=== PATIENT | male | born 1965 | race Caucasian/White ===

== ENCOUNTER → 2024-08-10 09:33 | Emergency (ER) | payer BC, SELFPAY ==
[2024-08-10] VITALS (7 sets, daily range): BP systolic 115–127; BP diastolic 72–92
--- NOTE | 2024-08-10 09:50 | ED.GENMED ---
History of Present Illness
General
Chief Complaint: Fainting/Passed Out
Time Seen by Provider: 08/10/24 09:50
History of Present Illness
History of Present Illness:
TIME OF INITIAL ENCOUNTER: 9:55 AM
HPI:
The patient is a 59-year-old male with a history of a cold lasting approximately one week, presenting with symptoms of cough, indigestion, and dizziness. The patient reports feeling nauseous in the shower today, leading to two episodes of syncope
where he fell to the floor. He mentioned not sleeping well last night and urinating frequently. Upon review of the youth nutritional monitor, the patient demonstrated frequent ventricular beats, but not ventricular tachycardia. The patient has noted muscle
soreness in the back and neck resulting from the falls but denies significant pain or tenderness upon palpation of these areas. Vital signs indicated a slightly elevated temperature of 100.8 �F. The patient has not taken any medication like Tylenol
or Motrin for the fever. He denies current feelings of passing out and significant head or neck pain but reports some soreness. The patient also confirmed negative results for flu and COVID-19 testing conducted at urgent care.
EXAM:
GENERAL: Well appearing in no distress
HEENT: Moist oral mucosa
HEAD: No evidence of craniofacial trauma
C-SPINE: No midline C-spine tenderness
BACK: No midline L-spine tenderness
CARDIOVASCULAR: No murmurs, borderline tachycardic heart rate, regular rhythm, frequent ectopy noted no chest wall tenderness
PULMONARY: No respiratory distress, breath sounds are clear and equal
ABDOMEN: Soft with no peritoneal signs, no tenderness
NEUROLOGIC: Excellent strength all extremities, no coordination deficits
PSYCHIATRIC: Appropriate mental status, normal insight and judgement
EXTREMITIES: Nontender, no edema, moves all extremities equally
SKIN: No rash, no lesions
NUMBER AND COMPLEXITY OF PROBLEMS ADDRESSED AT THE ENCOUNTER
� Chronic conditions affecting care: CKD, high blood pressure, GERD
� Acute Exacerbation and/or Progression of Chronic Illness: This is an acute problem
� Differential Diagnosis includes:
- Dehydration
- Vasovagal syncope
- Vertigo
- Hypoglycemia
- Urinary tract infection
- Gastroenteritis
- Electrolyte imbalance
- Influenza
- COVID-19
- Sepsis
AMOUNT AND/OR COMPLEXITY OF DATA TO BE REVIEWED AND ANALYZED
� I performed an independent evaluation of and my interpretation is:
EKG: Sinus 108, frequent monomorphic PVCs, PAC
CT:
X-rays: Chest x-ray suggest the possibility of right lower lobe pneumonia versus atelectasis
Laboratory Studies: Chemistries including magnesium normal
Other:
� Review of other/old records: I reviewed [facility] from [facility] [place]: Urinalysis shows moderate blood, negative ketones, protein greater than 300, nitrite leukocyte esterase negative, flu COVID-negative. White
count 9.8, hemoglobin 14.8, sodium 138, potassium 4.6, chloride 101, ionized calcium 1.16 (normal), bicarb 24, glucose 107, BUN 22, creatinine 1.6
� Clinical information was obtained by an independent historian: I spoke to mother at bedside
� Prescriptions/Medications Considered but not given:
� Further testing considered but not performed:
RISK OF COMPLICATIONS AND/OR MORBIDITY OR MORTALITY OF PATIENT MANAGEMENT
� Social determinants of health affecting care: Lives at home
� Discussion with other providers:
� Escalation of care including admission/observation vs risk of discharge considered: The patient is given IV fluids. He has frequent ventricular ectopy on the monitor and at times and ventricular bigeminy.
ANY OTHER UPDATES:
1 PM: I reassessed patient. Ventricular bigeminy and all ventricular ectopy has resolved. He was given fluids and Tylenol for the fever. Chest x-ray suggest pneumonia. Will start antibiotics. Regarding his nonspecific back pain, he wants to try
'a muscle relaxer'. Overall is very well-appearing at time of discharge
Phy Exam
Physical Exam
Physical Exam:
See HPI
Sepsis
Sepsis Screening
Sepsis Assessment: Sepsis Ruled Out
Sepsis Screen
Sepsis Screen: Sepsis Ruled Out
Date: 08/10/24
Time: 13:01
Course
Orders/Labs/Results
Orders:
Orders
08/10/24 09:37
EKG [Electrocardiogram (*1)] Urgent
Reason for Study: Chest Pain
EKG- Treatment ONCE
08/10/24 09:53
0.9% Sodium Chloride 1000 ml [Nss] 1,000 ml IV BOLUS
08/10/24 10:01
Acetaminophen [Tylenol] 1,000 mg PO NOW STA
08/10/24 10:02
CR Chest - 2 Views Urgent
Comment:
Reason For Exam: fever
08/10/24 11:39
Complete Blood Count/With Diff Urgent
Comprehensive Metabolic Panel Urgent
Lactic Acid Q4H
Comment: CANCEL 2nd LACTIC ACID IF 1st LACTIC ACID IS LESS THAN 2
Magnesium Urgent
Blood Culture Q30M
KYLIE Source: Blood/Venous
Specimen Description:
Blood Culture Q30M
KYLIE Source: Blood/Venous
Specimen Description:
Abnormal Lab Results
08/10/24
11:39
RBC 4.37 L 10^6/uL
(4.70-6.10)
MCH 32.5 H pg
(27.0-31.0)
Absolute Neuts (auto) 7.0 H 10^3/uL
(1.4-6.5)
Absolute Lymphs (auto) 0.9 L 10^3/uL
(1.2-3.4)
Neutrophils % 81.4 H %
(42.2-75.2)
Lymphocytes % 10.5 L %
(20.5-51.1)
BUN 22 H mg/dl
(9-20)
08/10/24 11:39
08/10/24 11:39
Vital Signs
Initial and Last Documented VS:
Initial Vital Signs
Temp Pulse Resp BP Pulse Ox
38.2 C H 114 20 116/85 98
08/10/24 09:39 08/10/24 09:39 08/10/24 09:39 08/10/24 09:39 08/10/24 09:39
Last Documented Vital Signs
Temp Pulse Resp BP Pulse Ox
38.2 C H 99 19 117/73 96
08/10/24 09:39 08/10/24 11:45 08/10/24 11:45 08/10/24 11:28 08/10/24 11:45
*Critical Care Note
Total Time (30-74mins, 75-104mins- exclusive of procedures): Not Applicable
ED Attending Note
-
Portions of this chart may have been created with voice recognition software.� Occasional wrong word or��sound alike� substitutions may have occurred due to the inherent limitations of voice recognition software.
Discharge Plan
Departure
Referrals:
Jesus Augustin DO [Family Provider]
Interventions
Interventions:
*Risk Screen - Suicide Last Done: 08/10/24 11:47
*General Assessment Last Done: 08/10/24 11:47
*Neglect/Abuse Screening Last Done: 08/10/24 11:47
*ED- Fall Risk Assessment Last Done: 08/10/24 11:47
*ED COVID-19 Vaccine History Last Done: 08/10/24 11:47
ED- Cardiac Assessment Last Done: 08/10/24 11:47
ED- Neurological Assessment Last Done: 08/10/24 11:47
Discharge Date and Time
Print Language: ESTONIAN
[2024-08-10] MEDS: TYLENOL 1000 MG PO (11:14)
[2024-08-10] MEDS: NSS 1000 IV (11:15)
[2024-08-10 12:15] LABS: % Basophils 0.2 % (0-2); % Eosinophils 0.1 % (0-6); % Immature Granulocytes 0.5 % (0-0.5); % Lymphocytes 10.5 % (20.5-51.1); % Monocytes 7.3 % (1.7-9.3); % Neutrophils 81.4 % (42.2-75.2); Absolute Lymphocytes 0.9 10^3/uL (1.2-3.4); Absolute Monocytes 0.6 10^3/uL (0.1-0.6); Hematocrit 40.4 % (39.0-52.0); Hemoglobin 14.2 g/dL (13.0-18.0); Mean Corp Hgb Conc. 35.1 g/dL (33.0-37.0); Mean Corpuscular Hgb 32.5 pg (27.0-31.0); Mean Corpuscular Volume 92.4 fL (80.0-94.0); Mean Platelet Volume 9.8 fL (7.4-10.4); Nucleated Red Blood Cells % 0 % (-); Platelet Count 135 10^3/uL (130-400); Red Blood Cell Count 4.37 10^6/uL (4.70-6.10); Red Cell Dist. Width 12.7 % (11.5-14.5); White Blood Cell Count 8.6 10^3/uL (4.8-10.8)
[2024-08-10 12:46] LABS: ALT (SGPT) 12 U/L (0-50); AST (SGOT) 19 U/L (17-59); Alkaline Phosphatase 103 U/L (38-126); Blood Urea Nitrogen 22 mg/dl (9-20); Calcium 9.1 mg/dl (8.4-10.2); Carbon Dioxide 26 mmol/L (22-30); Chloride 106 mmol/L (98-107); Glucose 98 mg/dl (70-99); Potassium 4.7 mmol/L (3.5-5.1); Sodium 140 mmol/L (135-145); Total Bilirubin 0.4 mg/dl (0.2-1.3); Total Protein 6.5 g/dl (6.3-8.2); eGFR > 60.00
[2024-08-10] MEDS: AMOXIL 1000 MG PO (13:28)
[2024-08-10] MEDS: ZITHROMAX 500 MG PO (13:28)
[2024-08-10] MEDS: FLEXERIL 10 MG PO (13:28)
== END | disposition home or self-care (01) ==
LOC: EMR 09:33
PROVIDERS: EMERGENCY PHYSICIAN Emergency Medicine; FAMILY PHYSICIAN Student in an Organized Health Care Education/Training Program
DX: R55 Syncope and collapse (principal); I49.3 Ventricular premature depolarization; I12.9 Hypertensive chronic kidney disease with stage 1 through stage 4 chronic kidney disease, or unspecified chronic kidney disease; N18.9 Chronic kidney disease, unspecified
CPT/HCPCS: 99285; 96360; 71046; 80053; 83605; 83735; 85025; 87040; 93005